=== PATIENT | male | born 1980 | race Caucasian/White ===

== ENCOUNTER 2016-10-18 15:40 | Emergency (ER) | payer SELFPAY ==
[~2016-10-18] VITALS: Ht 188 cm; Wt 69.5 kg
[2016-10-18 15:47] VITALS: BP 130/86
[2016-10-18] MEDS ORDERED: METHOCARBAMOL 750 MG TABLET ONE (16:37)
[2016-10-18] MEDS ORDERED: KETOROLAC 30 MG/1 ML ONE (16:38)
[2016-10-18] MEDS ORDERED: METHOCARBAMOL 750 MG TABLET PO ONE (17:00)
[2016-10-18] MEDS ORDERED: KETOROLAC 30 MG/1 ML IM ONE (17:00)
== END 2016-10-18 17:16 | disposition home or self-care (01) ==
LOC: ED 17:10
DX: S46.912A Strain of unspecified muscle, fascia and tendon at shoulder and upper arm level, left arm, initial encounter (principal); X58.XXXA Exposure to other specified factors, initial encounter; Y93.89 Activity, other specified; Y92.89 Other specified places as the place of occurrence of the external cause; Y99.8 Other external cause status
CPT/HCPCS: 73030; 96372; 99284; J1885

== ENCOUNTER 2016-11-26 01:22 | Emergency (ER) | payer SELFPAY ==
[~2016-11-26] VITALS: Ht 188 cm; Wt 69.9 kg
[2016-11-26 01:24] VITALS: BP 134/92
[2016-11-26] MEDS ORDERED: OXYcodone/APAP 5/325MG TABLET ONE (01:42)
[2016-11-26] MEDS ORDERED: OXYcodone/APAP 5/325MG TABLET PO ONE (02:00)
== END 2016-11-26 03:18 | disposition home or self-care (01) ==
LOC: ED 01:42
DX: S46.811A Strain of other muscles, fascia and tendons at shoulder and upper arm level, right arm, initial encounter (principal); S29.012A Strain of muscle and tendon of back wall of thorax, initial encounter; X50.0XXA Overexertion from strenuous movement or load, initial encounter; Y93.89 Activity, other specified; Y92.89 Other specified places as the place of occurrence of the external cause; Y99.8 Other external cause status
CPT/HCPCS: 72050; 99284